=== PATIENT | female | born 1965 | race Caucasian/White ===

== ENCOUNTER → 2020-06-02 | Outpatient (CLI) | payer OTHER ==
[~2020-06-02] MED LIST: BUPIVACAINE/PF 0.5% ONE; BUPR-173 PO; IBUP-1623 PO; LETR2.5T3 PO; LIDOCAINE/PF 1%, 30ML ONE; ONDA4TAB7 PO; OXYC-302 PO; PALB100C PO; POTA20PA31 PO
== END | disposition home or self-care (01) ==
LOC: STAR 13:24
PROVIDERS: ATTEND Anesthesiology
DX: Z20.822 Contact with and (suspected) exposure to COVID-19 (principal)
CPT/HCPCS: U0003

== ENCOUNTER 2020-06-04 09:26 | Day surgery (SDC) | payer OTHER ==
[~2020-06-04] VITALS: Ht 172.7 cm; Wt 84.3 kg
[2020-06-04 10:01] VITALS: BP 124/83
[2020-06-04] MEDS ORDERED: CHLORHEXIDINE 15 ML UDC ONE (10:10)
[2020-06-04] MEDS ORDERED: OXYC-302 PO (10:40)
[2020-06-04] MEDS ORDERED: PALB100C PO (10:40)
[2020-06-04] MEDS ORDERED: BUPR-173 PO (10:40)
[2020-06-04] MEDS ORDERED: ONDA4TAB7 PO (10:40)
[2020-06-04] MEDS ORDERED: POTA20PA31 PO (10:40)
[2020-06-04] MEDS ORDERED: IBUP-1623 PO (10:40)
[2020-06-04] MEDS ORDERED: LETR2.5T3 PO (10:40)
[2020-06-04] MEDS ORDERED: MIDAZOLAM 1 MG/ML, 2ML ONE (11:20)
[2020-06-04] MEDS ORDERED: FENTANYL PF 100 MCG/2ML ONE ×2 (11:20→12:52)
[2020-06-04] MEDS ORDERED: CLINDAMYCIN 150 MG/ML, 6ML ONE (11:54)
[2020-06-04] MEDS ORDERED: DEXAMETHASONE 4 MG/ML, 1ML ONE (11:59)
[2020-06-04] MEDS ORDERED: SUCCINYLCHOLINE 20 MG/ML, 10ML ONE (11:59)
[2020-06-04] MEDS ORDERED: PROPOFOL 10 MG/ML, 20ML ONE (11:59)
[2020-06-04] MEDS ORDERED: ONDANSETRON 2MG/ML, 2ML ONE (11:59)
[2020-06-04] MEDS ORDERED: ROCURONIUM 10 MG/ML,10ML ONE (11:59)
[2020-06-04] MEDS ORDERED: OXYcodone 5 MG/5 ML ORAL.SOL UDC PO PRN ×2 (12:00→12:30)
[2020-06-04] MEDS ORDERED: MEPERIDINE/PF 25MG/0.5ML IVPush PRN ×2 (12:00→12:30)
[2020-06-04] MEDS ORDERED: ONDANSETRON 2MG/ML, 2ML IVPush PRN ×2 (12:00→12:30)
[2020-06-04] MEDS ORDERED: PROMETHAZINE 25 MG/ML, 1ML IVPush PRN ×2 (12:00→12:30)
[2020-06-04] MEDS ORDERED: KETOROLAC 30 MG/1 ML IVPush PRN ×2 (12:00→12:30)
[2020-06-04] MEDS ORDERED: HYDROcodone/APAP 7.5-325MG/15ML UDC PO PRN ×2 (12:00→12:30)
[2020-06-04] MEDS ORDERED: HYDROmorphone 1 MG/ML, 1ML INJ IVPush PRN ×2 (12:00→12:30)
[2020-06-04] MEDS ORDERED: FENTANYL PF 100 MCG/2ML IV PRN (12:30)
[2020-06-04] MEDS ORDERED: morphine SULFATE 10 MG/ML, 1ML IVPush PRN (12:30)
[2020-06-04] MEDS ORDERED: BUPIVACAINE/PF 0.5% ONE (12:43)
[2020-06-04] MEDS ORDERED: LIDOCAINE/PF 1%, 30ML ONE (12:43)
[2020-06-04] MEDS ORDERED: OXYcodone 5 MG/5 ML ORAL.SOL UDC ONE (12:52)
[2020-06-04] MEDS ORDERED: KETOROLAC 30 MG/1 ML ONE (12:52)
[2020-06-04] MEDS: FENTANYL PF 100 MCG/2ML IV PRN ×2 (12:56→13:03)
== END 2020-06-04 14:30 | disposition home or self-care (01) ==
LOC: OUT 09:26
PROVIDERS: ATTEND Orthopaedic Surgery Foot and Ankle Surgery
DX: S92.355A Nondisplaced fracture of fifth metatarsal bone, left foot, initial encounter for closed fracture (principal); Z79.891 Long term (current) use of opiate analgesic; Z79.899 Other long term (current) drug therapy; Z85.3 Personal history of malignant neoplasm of breast; Z88.0 Allergy status to penicillin; Z88.8 Allergy status to other drugs, medicaments and biological substances; Z90.11 Acquired absence of right breast and nipple; X50.1XXA Overexertion from prolonged static or awkward postures, initial encounter; Y93.89 Activity, other specified; Y92.89 Other specified places as the place of occurrence of the external cause; Y99.8 Other external cause status
CPT/HCPCS: 28485; 73630; C1713; J0330; J1100; J1885; J2250; J2405; J2704; J3010; 76000